=== PATIENT | male | born 1975 | race American Indian/Alaskan Native ===

== ENCOUNTER 2017-05-05 11:19 | Emergency (ER) | payer MEDICAID ==
[2017-05-05 11:30] VITALS: BP 151/82; RESP 20; TEMP 97.7
[2017-05-05 12:22] VITALS: PULSE 88; O2SAT 98
--- NOTE | 2017-05-05 13:01 | ED PDOC ---
HPI: General Adult Time Seen by Provider: 05/05/17 11:38 Chief Complaint (Nursing): Lower Extremity Problem/Injury History Per: Patient Additional Complaint(s): Pt. states since February he's had b/l feet swelling with pruritus. States he was seen in [facility] ED for it last month and had an US of both his legs done which were normal. He then f/u with his PMD Dr. Solano, who attempted to get him to see a dough molder hand but was unsuccessful due to his insurance. Denies numbness, tingling, trauma, SOB, palpitations. Past Medical History Reviewed: Historical Data, Nursing Documentation, Vital Signs Vital Signs: Last Vital Signs Temp 97.7 F 05/05/17 12:12 Pulse 88 05/05/17 12:12 Resp 20 05/05/17 12:12 BP 151/82 H 05/05/17 12:12 Pulse Ox 98 05/05/17 13:01 - Medical History PMH: HTN - Family History Family History: States: No Known Family Hx - Immunization History Hx Tetanus Toxoid Vaccination: No Hx Influenza Vaccination: No Hx Pneumococcal Vaccination: No - Home Medications Home Medications: Ambulatory Orders Medication Instructions Recorded Clotrimazole 1% Cream [Lotrimin 1%] 1 applic TOP BID #1 tube 05/05/17 - Allergies Allergies/Adverse Reactions: Allergies Allergy/AdvReac Type Severity Reaction Status Date / Time No Known Allergies Allergy Verified 05/05/17 12:11 Review of Systems ROS Statement: Except As Marked, All Systems Reviewed And Found Negative Skin: Positive for: Rash Physical Exam - Physical Exam Appears: Positive for: Well, Non-toxic, No Acute Distress Skin: Positive for: Normal Color, Warm Cardiovascular/Chest: Positive for: Regular Rate, Rhythm. Negative for: Tachycardia Respiratory: Positive for: Normal Breath Sounds. Negative for: Decreased Breath Sounds, Accessory Muscle Use, Wheezing, Respiratory Distress Pulses-Dorsalis Pedis (L): 2+ Pulses-Dorsalis Pedis (R): 2+ Extremity: Positive for: Other (b/l pedal edema with diffuse scaling noted on plantar surfaces without vesicles or ulcers) - ECG O2 Sat by Pulse Oximetry: 98 - Progress ED Course And Treament: FSBS: 97 Pt. evaluated by Jose Elias, podiatry resident, who spoke with Dr. Nolasco and requests that compressive dressings be placed and pt. be prescribed clotrimazole. Also states that swelling is likely due to pt.'s weight. Disposition - Clinical Impression Clinical Impression: Tinea pedis - Patient ED Disposition Is Patient to be Admitted: No - Disposition Referrals: Podiatry Clinic [Outside] Disposition: Routine/Home Disposition Time: 14:47 Condition: STABLE Prescriptions: Clotrimazole 1% Cream [Lotrimin 1%] 1 applic TOP BID #1 tube Instructions: Tinea Pedis (ED), Edema (ED) Forms: [employer] (Uzbek) Print Language: PAKISTANI
--- NOTE | 2017-05-05 17:12 | CP.PCM.PN ---
Subjective - Date & Time of Evaluation Date of Evaluation: 05/05/17 Time of Evaluation: 13:08 - Subjective Subjective: 42 year old male seen in ED for b/l edematous legs and feet and itchy feet. Patient states that the swelling in his legs has been occurring on and off since February. He denies any other medical issues. He denies any medications, allergies, past surgical history. He states that he currently lives in a homeless senior living. He also states that last week he saw his primary care physician who told him to see a recreation adviser for his feet but he has not done so at this point. Patient denies any further pedal complaints at this time. Patient denies N/V/F/C/CP/SOB Objective - Vital Signs/Intake and Output Vital Signs (last 24 hours): Temp Pulse Resp BP Pulse Ox 97.7 F 88 20 151/82 H 98 05/05/17 12:12 05/05/17 12:12 05/05/17 12:12 05/05/17 12:12 05/05/17 14:49 - Constitutional Appears: Well, Non-toxic, No Acute Distress - Extremities Exam Additional comments: LE focused exam Vasc: DP/PT pulses non palpable b/l due to diffuse edema to lower extremities. CFT < 3 seconds to all digits b/l. Skin temperature warm to warm from proximal to distal. Neuro: Epicritic and protective sensation grossly intact b/l Derm: Plaques and scaling noted in moccasin type pattern around patients feet b/ l. Otherwise no open lesions, wounds, maceration, xerosis, abnormal pigmentation or abnormal growths notes MSK: No POP to posterior calves b/l. - Neurological Exam Neurological Exam: Alert, Awake, Oriented x3 - Psychiatric Exam Psychiatric exam: Normal Affect, Normal Mood Assessment and Plan - Assessment and Plan (Free Text) Assessment: 42 year old male with b/l edematous lower extremites and tinea pedis seen in ED Plan: Patient seen and evaluated Charts, labs and vitals reviewed; afebrile Plan discussed with attending Dr. Mcconnell B/l legs wrapped with Sarabia compression Rx. Clotrimazole to be applied daily Patient given two new pairs of socks and incouraged to keep feet as clean and dry as possible Patient encouraged to lose weight if possible Patient to follow up in podiatry clinic in two weeks
== END 2017-05-05 15:06 | disposition home or self-care (01) ==
LOC: H.ER 11:19
DX: B35.3 Tinea pedis (principal)

== ENCOUNTER 2017-05-16 07:28 | Emergency (ER) | payer MEDICAID ==
[2017-05-16 07:51] VITALS: BP 138/70; PULSE 84; RESP 16; TEMP 98.1; O2SAT 100
--- NOTE | 2017-05-16 09:39 | ED PDOC ---
Lower Extremity Pain/Injury Time Seen by Provider: 05/16/17 08:15 Chief Complaint (Nursing): Lower Extremity Problem/Injury Chief Complaint (Provider): Bilateral leg swelling History Per: Patient History/Exam Limitations: no limitations Onset/Duration Of Symptoms: Other (months) Current Symptoms Are (Timing): Still Present Additional Complaint(s): Patient is a 42 y/o male presenting to the emergency department for chronic swelling on both legs ongoing for four months. Reports that he is usually on his feet; his lifestyle does not permit frequent or extended resting periods. Also reports seeing rn pediatric for same complaint and was given a prescription for anti-fungal cream for his feet. Denies leg pain, fever, any medical history , or any other or new complaints. On initial evaluation, patient requests something to eat and drink. Past Medical History Reviewed: Historical Data, Nursing Documentation, Vital Signs Vital Signs: Last Vital Signs Temp 98.1 F 05/16/17 07:48 Pulse 84 05/16/17 07:48 Resp 16 05/16/17 07:48 BP 138/70 05/16/17 07:48 Pulse Ox 100 05/16/17 07:48 - Medical History PMH: Depression, HTN - Surgical History Surgical History: No Surg Hx - Family History Family History: States: Unknown Family Hx - Living Arrangements Living Arrangements: Other (Homeless half-way) - Social History Current smoker - smoking cessation education provided: Yes (less than ten cigarettes per day; over 30 years) Ex-Smoker (has not smoked in the last 12 months): No Alcohol: Social Drugs: Other - Immunization History Hx Tetanus Toxoid Vaccination: No Hx Influenza Vaccination: No Hx Pneumococcal Vaccination: No - Home Medications Home Medications: Ambulatory Orders Medication Instructions Recorded Clotrimazole 1% Cream [Lotrimin 1%] 1 applic TOP BID #1 tube 05/05/17 - Allergies Allergies/Adverse Reactions: Allergies Allergy/AdvReac Type Severity Reaction Status Date / Time No Known Allergies Allergy Verified 05/05/17 12:11 Review of Systems ROS Statement: Except As Marked, All Systems Reviewed And Found Negative Constitutional: Negative for: Fever Respiratory: Negative for: Shortness of Breath Musculoskeletal: Positive for: Other (bilateral leg swelling) Physical Exam - Reviewed Nursing Documentation Reviewed: Yes Vital Signs Reviewed: Yes - Physical Exam Appears: Positive for: Well, Non-toxic, No Acute Distress Head Exam: Positive for: ATRAUMATIC, NORMAL INSPECTION, NORMOCEPHALIC Skin: Positive for: Normal Color, Warm, Dry Eye Exam: Positive for: Normal appearance Neck: Positive for: Normal, Painless ROM, Supple Cardiovascular/Chest: Positive for: Regular Rate, Rhythm. Negative for: Murmur Respiratory: Positive for: Normal Breath Sounds. Negative for: Accessory Muscle Use, Respiratory Distress Gastrointestinal/Abdominal: Positive for: Normal Exam, Soft Extremity: Positive for: Normal ROM, Swelling (bilateral lower leg ). Negative for: Tenderness, Calf Tenderness Neurologic/Psych: Positive for: Alert, Oriented (x3) - ECG O2 Sat by Pulse Oximetry: 100 (RA) Pulse Ox Interpretation: Normal Medical Decision Making Medical Decision Making: Time: 09:20 Initial impression: bilateral leg swelling Patient presents with no acute conditions. No tests, consultations, or treatment is necessary at this time. Patient has a PCP who he is advised to follow up with. Scribe Attestation: Documented by Mariela King, acting as a scribe for Adelfo De La Rosa MD. Provider Scribe Attestation: All medical record entries made by the Scribe were at my direction and personally dictated by me. I have reviewed the chart and agree that the record accurately reflects my personal performance of the history, physical exam, medical decision making, and the department course for this patient. I have also personally directed, reviewed, and agree with the discharge instructions and disposition. Disposition - Clinical Impression Clinical Impression: Leg swelling - Patient ED Disposition Is Patient to be Admitted: No Doctor Will See Patient In The: Office Counseled Patient/Family Regarding: Studies Performed, Diagnosis, Need For Followup - Disposition Referrals: Podiatry Clinic [Outside] Disposition: Routine/Home Disposition Time: 10:00 Condition: GOOD Additional Instructions: Follow up with podiatry and your PCP in 1 week. Instructions: Leg Edema (ED)
== END 2017-05-16 10:13 | disposition home or self-care (01) ==
LOC: H.ER 07:28
DX: R60.0 Localized edema (principal); F32.9 Major depressive disorder, single episode, unspecified; I10 Essential (primary) hypertension

== ENCOUNTER 2017-05-24 07:16 | Emergency (ER) | payer MEDICAID ==
[2017-05-24 07:41] VITALS: BP 118/69; PULSE 90; RESP 20; TEMP 98.4; O2SAT 99; BMI 103.4
--- NOTE | 2017-05-24 08:39 | ED PDOC ---
Lower Extremity Pain/Injury Time Seen by Provider: 05/24/17 07:26 Chief Complaint (Nursing): Lower Extremity Problem/Injury Chief Complaint (Provider): Bilateral foot swelling History Per: Patient History/Exam Limitations: no limitations Onset/Duration Of Symptoms: Other (4 months) Current Symptoms Are (Timing): Still Present Additional Complaint(s): Patient is a 42 y/o male with a past medical history of hypertension and depression presenting to the emergency department for chronic, worsening bilateral foot swelling ongoing for four months. Reports that he couldn't obtain a podiatry appointment and came to the ED for evaluation. Denies taking medication, fever, vomiting, or other complaints. PCP: Dr. Jacob Solano Past Medical History Reviewed: Historical Data, Nursing Documentation, Vital Signs Vital Signs: Last Vital Signs Temp 98.4 F 05/24/17 07:40 Pulse 90 05/24/17 07:40 Resp 20 05/24/17 07:40 BP 118/69 05/24/17 07:40 Pulse Ox 99 05/24/17 07:40 - Medical History PMH: Depression, HTN - Family History Family History: States: Unknown Family Hx - Social History Current smoker - smoking cessation education provided: Yes (few cigarettes per day) Ex-Smoker (has not smoked in the last 12 months): No Alcohol: Social Drugs: Cannabis (Marijuana) - Immunization History Hx Tetanus Toxoid Vaccination: No Hx Influenza Vaccination: No Hx Pneumococcal Vaccination: No - Home Medications Home Medications: Ambulatory Orders Medication Instructions Recorded Clotrimazole 1% Cream [Lotrimin 1%] 1 applic TOP BID #1 tube 05/05/17 - Allergies Allergies/Adverse Reactions: Allergies Allergy/AdvReac Type Severity Reaction Status Date / Time No Known Allergies Allergy Verified 05/05/17 12:11 Review of Systems ROS Statement: Except As Marked, All Systems Reviewed And Found Negative Constitutional: Negative for: Fever Gastrointestinal: Negative for: Vomiting Musculoskeletal: Positive for: Foot Pain (bilateral swelling) Physical Exam - Reviewed Nursing Documentation Reviewed: Yes - Physical Exam Appears: Positive for: Well, No Acute Distress Head Exam: Positive for: ATRAUMATIC, NORMAL INSPECTION, NORMOCEPHALIC Skin: Positive for: Normal Color, Warm, Dry Cardiovascular/Chest: Positive for: Regular Rate, Rhythm. Negative for: Murmur Respiratory: Positive for: Normal Breath Sounds. Negative for: Accessory Muscle Use, Respiratory Distress Gastrointestinal/Abdominal: Positive for: Soft (obese) Extremity: Positive for: Pedal Edema (bilateral). Negative for: Tenderness (or warmth) Neurologic/Psych: Positive for: Alert, Oriented - ECG O2 Sat by Pulse Oximetry: 99 (RA) Pulse Ox Interpretation: Normal Medical Decision Making Medical Decision Making: Time: 08:30 Initial impression: Bilateral foot swelling- chronic Initial plan: Podiatry Consult Reevaluation Patient is sitting in bed comfortably, requesting a cup of coffee. 08:58 Spoke to podiatry. they saw pt, wrapped up the leg, and gave him a follow up appt in podiatry clinic. Diagnosis: chronic venous stasis. Scribe Attestation: Documented by Mariela King, acting as a scribe for Najma Christian MD. Provider Scribe Attestation: All medical record entries made by the Scribe were at my direction and personally dictated by me. I have reviewed the chart and agree that the record accurately reflects my personal performance of the history, physical exam, medical decision making, and the department course for this patient. I have also personally directed, reviewed, and agree with the discharge instructions and disposition. Disposition - Clinical Impression Clinical Impression: Chronic venous stasis dermatitis - Patient ED Disposition Is Patient to be Admitted: No Counseled Patient/Family Regarding: Studies Performed, Diagnosis, Need For Followup - Disposition Referrals: [facility] [Outside] Podiatry Clinic [Outside] Disposition: Routine/Home Disposition Time: 08:55 Condition: IMPROVED Additional Instructions: follow up with podiatry appointment as instructed return to the ED with any worsening or concerning symptoms Instructions: Chronic Wound Care (ED), Venous Insufficiency (GEN) Forms: [email or web address] (Palestinian)
--- NOTE | 2017-05-24 09:09 | CP.PCM.PN ---
Subjective - Date & Time of Evaluation Date of Evaluation: 05/24/17 Time of Evaluation: 09:09 - Subjective Subjective: 42 year old male seen in ED for bilateral leg swelling. Patient states that the swelling in his legs has been occurring on and off since February and that he came here 3 weeks ago for the same problem. Patient states that he tried to get an appointment with podiatry clinic but he was unable to, so instead he came here. Patient states he lives in a custodial at the moment. Patient states he has a PCP but has been unable to get a referral to any doctors for his chronic leg swelling. Patient also states he has the prescription from a few weeks ago for the antifungal cream but that he never got it. Pt states his feet are still itchy at times. Patient denies any further pedal complaints at this time. Patient denies N/V/F/C/CP/SOB Objective - Vital Signs/Intake and Output Vital Signs (last 24 hours): Temp Pulse Resp BP Pulse Ox 98.4 F 90 20 118/69 99 05/24/17 07:40 05/24/17 07:40 05/24/17 07:40 05/24/17 07:40 05/24/17 09:06 - Constitutional Appears: Well, Non-toxic, No Acute Distress - Extremities Exam Additional comments: LE focused examination: Vasc: DP/PT pulses non-palpable B/L due to diffuse edema to lower extremities. CFT < 3 seconds to all digits B/L. Skin temperature warm to warm from proximal to distal. Neuro: Epicritic and protective sensation grossly intact B/L. Derm: Plaques and scaling noted in moccasin-type distribution to plantar feet B/ L. Otherwise no open lesions, wounds, maceration, xerosis, abnormal pigmentation or abnormal growths noted MSK: No pain upon palpation to bilateral calves - Neurological Exam Neurological Exam: Alert, Awake, Oriented x3 - Psychiatric Exam Psychiatric exam: Normal Affect, Normal Mood Assessment and Plan - Assessment and Plan (Free Text) Assessment: 42 year old male seen in ED for bilateral lower extremity edema Plan: Patient seen and evaluated Charts, labs and vitals reviewed; afebrile Plan discussed with attending Dr. Mcconnell B/l legs wrapped with ADRIAN bandages Pt recommended to get Clotrimazole cream from pharmacy to be applied to bottom of feet twice a day Patient given two new pairs of socks and encouraged to keep feet as clean and dry as possible Patient to follow up in podiatry clinic in two weeks and given appointment card with correct telephone number for scheduling
== END 2017-05-24 09:30 | disposition home or self-care (01) ==
LOC: H.ER 07:16
DX: I87.2 Venous insufficiency (chronic) (peripheral) (principal); I10 Essential (primary) hypertension